=== PATIENT | female | born 2005 | race Caucasian/White ===

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

== ENCOUNTER 2023-04-08 02:39 | Outpatient (CLI) | payer MEDICAID, SELFPAY ==
--- NOTE | 2023-04-08 | DI.US_ITS ---
Exam(s) US BREAST RT COMPLETE EXAM: US BREAST RT COMPLETE CLINICAL HISTORY: MASS OF UPPER OUTER QUADRANT RT BREAST, N63.11. TECHNIQUE: Complete ultrasound of the right breast was performed including all 4 quadrants, the retr oareolar region, and the ipsilateral axilla. COMPARISON: None. This 17-year-old patient fills a possible lump in the upper outer quadrant 10 o'c lock position. When asked she describes it as the size of a ping-pong ball. FINDINGS: COMPLETE RIGHT BREAST ULTRASOUND: There is no evidence of solid or significant cystic lesions in all 4 quadrants. At the 10 o'clock position (region of interest) there is an area of dense fibroglandular tissue which exactly corresponds with the palpable finding. There is no discernible nodule nor cyst at this leve l nor worrisome decreased through transmission. Scanning of the retroareolar region is negative for significant findings. Scanning of the ipsilateral right axilla is negative for significant adenopathy. IMPRESSION: There is dense tissue at the 10 o'clock position upper outer quadrant of the right breast which exact ly corresponds to her palpable finding. There is no discernible mass nor cyst at this level (nor els ewhere in the right breast). Appropriate follow-up as discussed by myself with the patient today is repeat ultrasound in 3 months time, with earlier imaging if she feels this is further increasing in size.. BI-RADS Category 3 - 3 month - Probably Benign Finding: Recommend follow-up ULTRASOUND in 3 months Breast Density - Category C - Heterogeneously dense Breast density Category C or D implies that the patient has dense breast tissue. Dense breast tissue can make it harder to find cancer on a mammogram. Dense breast tissue is also associated with an incr eased risk of breast cancer. This information about the result of the mammogram report was provided to the patient to raise their awareness. Use this report when you speak with the patient about their risks for breast cancer, which includes their family history. At that time, you may recommend additional screening tests (Ultrasoun d or MRI) as these tests may add significant information. A negative radiographic report should not delay biopsy if a dominant or clinically suspicious mass is present. Up to ten percent of cancers are not identified on mammography. A negative report may reinforce clinical impression. Adenosis and dense breasts may obscure an underlying neoplasm. False positive reports average 6 to 10%. Patient will receive a letter notifying them of these results.
== END 2023-04-08 02:59 ==
LOC: DI 02:39
PROVIDERS: PCP Nurse Practitioner Family; Visit Provider Advanced Practice Midwife
DX: N63.11 Unspecified lump in the right breast, upper outer quadrant (principal)
CPT/HCPCS: 76642